=== PATIENT | male | born 1930 | race Caucasian/White ===

== ENCOUNTER 2020-08-20 06:51 | Inpatient (IN) | payer OTHER ==
[~2020-08-20] VITALS: Ht 180.3 cm; Wt 73.9 kg
[2020-08-20 06:58] VITALS: BP 147/96
[2020-08-20 07:40] LABS: ABSOLUTE NEUTROPHILS 6.4 thou/uL (1.4-8.2); BASOPHILS 0.2 % (0.0-2.0); EOSINOPHILS 0.5 % (0.0-3.0); HEMATOCRIT 48.1 % (42.0-52.0); LYMPHOCYTES 7.3 % (24.0-44.0); MCH 33.8 pg (26.0-34.0); MCHC 33.3 g/dL (28.0-37.0); MCV 101.7 fL (80.0-100.0); MONOCYTES 5.9 % (1.0-8.0); POLYS 86.1 % (36.0-66.0); RBC 4.73 mil/uL (4.50-6.00); WBC 7.4 thou/uL (4.0-11.0)
[2020-08-20 07:43] LABS: ANION GAP 8 mmol/L (7-16); BUN 43 mg/dL (7-18); CALCIUM 9.8 mg/dL (8.5-10.1); CHLORIDE 101 mmol/L (98-107); CO2 30 mmol/L (21-32); CREATININE 1.7 mg/dL (0.7-1.3); GLUCOSE 139 mg/dL (74-106); POTASSIUM 4.8 mmol/L (3.5-5.1); SODIUM 139 mmol/L (136-145)
[2020-08-20 07:53] LABS: ALBUMIN 4.3 g/dL (3.4-5.0); MAGNESIUM 2.7 mg/dL (1.8-2.4); SGOT 31 U/L (15-37); SGPT 23 U/L (30-65); TOTAL BILIRUBIN 0.8 mg/dL (0.2-1.0); TOTAL PROTEIN 8.5 g/dL (6.4-8.2); TROPONIN-I <0.06 ng/mL (<0.06)
[2020-08-20 07:54] LABS: INR 2.07; PROTIME 21.8 Seconds (10.5-12.1)
[2020-08-20] MEDS ORDERED: ALLOPURINOL 10100 M3 PO (08:39)
[2020-08-20] MEDS ORDERED: ARICEPT10 M1 PO (08:41)
[2020-08-20] MEDS ORDERED: COZAAR 25 MG TA25 M1 PO (08:43)
[2020-08-20] MEDS ORDERED: [UNRECOGNIZED DRUG - OTHER] PO (08:44)
[2020-08-20] MEDS ORDERED: TORSEMIDE20 MG PO (08:44)
[2020-08-20] MEDS ORDERED: VITAMIN D-40010 MCG PO (08:44)
[2020-08-20] MEDS ORDERED: ZOCOR20 MG PO (08:45)
[2020-08-20] MEDS ORDERED: SPIRONOLACTONE25 M1 PO (08:45)
[2020-08-20] MEDS ORDERED: PREVACID30 MG PO (08:46)
[2020-08-20] MEDS ORDERED: MIRTAZAPINE45 MG PO (08:46)
[2020-08-20] MEDS ORDERED: WARFARIN SODIUM1 GM (08:47)
[2020-08-20 09:57] LABS: PLATELET COUNT 177 thou/uL (150-400)
--- NOTE | 2020-08-20 10:42 | NUR ---
VERBAL ORDERS PER ED PROVIDER TO KEEP CARDIZEM DRIP AT 5MG/HR AT THIS TIME D/T SOFT BLOOD PRESSURE
--- NOTE | 2020-08-20 11:02 | NUR ---
PT SON AND SPOUSE HELPING PT USE THE URINAL AT THIS TIME, ENCOURAGED TO USE CALL LIGHT IF THEY NEED ASSISTANCE
--- NOTE | 2020-08-20 13:28 | NUR ---
REPORT GIVEN TO GAB MENA AT THIS TIME. PT MOVED TO SOUTH SIDE OF THE ED TO WAIT FOR BED ASSIGNMENT UPSTAIRS
[2020-08-20 16:22] VITALS: BP 113/77
[2020-08-20 16:50] VITALS: BP 159/104
--- NOTE | 2020-08-20 18:00 | NUR ---
PT ARRIVED AT 1655 FROM ER VIA CART. PT AMBULATED FROM CART TO BED UNASSISTED AND STEADY ON FEET. PT STATES HE DOES NOT USE ANY ASSISTIVE DEVICES TO AMBULATE AT HOME AND HAS NOT HAD ANY FALLS. PT HOOKED UP TO TELEMETRY AND HR 134 AFIB. TELE STRIP PRINTED AND PLACED ON CHART. PT WAS ABLE TO SIGN ALL OF HIS OWN CONSENTS. PT C/O SORE PAIN IN THE MIDDLE OF HIS CHEST AND STATES IT GETS WORSE WITH DEEP BREATHS. PT STATES HE GENERALLY DOES NOT HAVE ANY PAIN AT ALL. PT'S AND PT'S ADULT SON AT BEDSIDE. PT IS CONVERSING AND HAS A GOOD SENSE OF HUMOR. PT STATES HE AND HIS RESIDE IN [facility] AND THEY ARE IN THE AREA FOR A GRANDDAUGHTER'S WEDDING THIS PAST WEEKEND. PT STATES HIS PRIMARY DOCTOR IS DR. TAMELA OTERO FROM [facility] IN [place]. PT'S CLARENCE- [phone] PT'S SON HAVEN- [phone] PT STATES SON HAVEN HAS MEDICAL DPOA IF HE EVER IS INCOMPETENT OF MAKING HIS OWN MEDICAL DECISIONS.
--- NOTE | 2020-08-20 18:13 | NUR ---
PT'S PRIMARY CARE DOCTOR- DR. TAMELA OTERO - [facility]- [phone] PT'S HYDRAULIC TESTER- DR. NIVIA HARVEY- [facility]-
[2020-08-20 20:03] VITALS: BP 110/57
[2020-08-20 21:37] VITALS: BP 135/69
--- NOTE | 2020-08-21 08:22 | EKG ---
[address] [place] [address] ELECTROCARDIOGRAM REPORT Name: KERMIT QUINTANA Room #: 208-P ADM IN M.R.#: [id number] Admission: 08/20/20 Attend Phys: Dave Retana MD Discharge: Date of : [birth year] Report #: [id number] [facility] ED Test Date: 2020-08-20 Test Time: 06:57:11 Pat Name: KERMIT QUINTANA Department: Room: 208 Gender: M Claims Adjuster Supervisor: unknown : [phone] Requested By: Kermit Jc Order Number: [id number] MD: Uli Hopper Measurements Intervals [place] Rate: 116 P: AK: QRS: -72 QRSD: 115 T: 85 QT: 324 QTc: 451 Interpretive Statements Atrial fibrillation Paired ventricular premature complexes Nonspecific IVCD with LAD Inferior infarct, old Anterior infarct, old Compared to ECG 10/16/2008 18:02:34 Ventricular premature complex(es) now present Intraventricular conduction delay now present Sinus rhythm no longer present First degree AV block no longer present Left-axis deviation no longer present Myocardial infarct finding still present Electronically Signed On 08-21-2020 7:00:33 CDT by Uli Hopper [email or web address] <ELECTRONICALLY SIGNED> By: Uli Hopper MD, [facility] 08/21/20 0700 Uli Hopper MD, [facility] /EPI
--- NOTE | 2020-08-21 10:11 | 2DMMODE ---
[facility] [address] [place] [address] 2 D/M-MODE ECHOCARDIOGRAM Name: KERMIT QUINTANA Room #: 208-P ADM IN M.R.#: [id number] Admission: 08/20/20 Attend Phys: Dave Retana MD Discharge: Date of : [birth year] Report #: [id number] THIS REPORT FOR: cc: FAM - Family physician unknown FAM - Family physician unknown Javon Tucker MD ~ APPROVED REPORT Study performed: 08/21/2020 09:31:24 EXAM: Comprehensive 2D, Doppler, and color-flow Echocardiogram Patient Location: Bedside Room #: 208 Status: routine BSA: 1.91 HR: 85 bpm BP: 135/69 mmHg Rhythm: Atrial Fibrillation Other Information Study Quality: Adequate Indications Atrial Fibrillation Chest Pain ? Amyloidosis, Elevated BNP. 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 2D Dimensions RVDd: 39.00 mm IVSd: 13.00 (7-11mm) LVOT Diam: 21.00 (18-24mm) LVDd: 46.00 mm PWd: 13.00 (7-11mm) LVDs: 35.00 (25-40mm) Left Atrium: 46.00 (27-40mm) Aortic Root: 40.00 mm Volumes Left Atrial Volume (Systole) Single Plane 4CH: 112.66 mL Single Plane 2CH: 88.16 mL Aortic Valve AoV Peak Ugo.: 1.20 m/s AO Peak Gr.: 5.80 mmHg LVOT Max P.12 mmHg [facility] [address] [place] [address] 2 D/M-MODE ECHOCARDIOGRAM Name: KERMIT QUINTANA Room #: 208-P ADM IN .R.#: [id number] Admission: 08/20/20 Attend Phys: Dave Retana MD Discharge: Date of : [birth year] Report #: [id number] LVOT Max V: 0.73 m/s WILLARD Vmax: 2.01 cm2 Mitral Valve MV Decel. Time: 116.35 ms MV E Max Ugo.: 0.83 m/s Pulmonary Valve PV Peak Ugo.: 0.73 m/s PV Peak Gr.: 2.14 mmHg Tricuspid Valve TR Peak Ugo.: 3.39 m/s RAP Estimate: 15.00 mmHg TR Peak Gr.: 46.08 mmHg PA Pressure: 61.00 mmHg Left Ventricle The left ventricle is normal size. Moderate concentric left ventricular hypertrophy. Left ventricular systolic function is low normal. LVEF is 50%. This study is not technically sufficient to allow evaluation of the LV diastolic function due to atrial fibrillation. Right Ventricle The right ventricle is normal size. Right ventricle is mildly hypokinetic. Atria Severe biatrial enlargement. Aortic Valve The aortic valve is normal in structure; mildly thickened and calcified. No aortic regurgitation is present. There is no aortic valvular stenosis. Mitral Valve The mitral valve is normal in structure. Mild mitral regurgitation. No evidence of mitral valve stenosis. Tricuspid Valve The tricuspid valve is normal in structure. Moderate tricuspid regurgitation. Estimated PAP is 60mmHg. Pulmonic Valve The pulmonary valve is normal in structure. Mild pulmonic regurgitation. [facility] [address] [place] [address] 2 D/M-MODE ECHOCARDIOGRAM Name: KERMIT QUINTANA Olya Room #: 208-P ADM IN M.R.#: [id number] Admission: 08/20/20 Attend Phys: Dave Retana MD Discharge: Date of : [birth year] Report #: [id number] Great Vessels The sinuses are mildly dilated at 4.0cm. Ascending aorta is not well visualized. IVC is dilated and collapses <50% with inspiration. Pericardium There is no pericardial effusion. <Conclusion> The left ventricle is normal size. Moderate concentric left ventricular hypertrophy. LVEF is 50%. The right ventricle is normal size. Severe biatrial enlargement. The aortic valve is normal in structure; mildly thickened and calcified. No aortic regurgitation is present. The mitral valve is normal in structure. Mild mitral regurgitation. The tricuspid valve is normal in structure. Moderate tricuspid regurgitation. Estimated PAP is 60mmHg. The pulmonary valve is normal in structure. Mild pulmonic regurgitation. The sinuses are mildly dilated at 4.0cm. There is no pericardial effusion. <ELECTRONICALLY SIGNED> By: Javon Tucker MD 08/21/20 1011 [id number] 101 Javon Tucker MD /INF
[2020-08-21 14:27] LABS: URINE BILIRUBIN NEGATIVE (Negative); URINE BLOOD NEGATIVE (Negative); URINE CLARITY CLEAR; URINE COLOR YELLOW; URINE GLUCOSE-RANDOM* NEGATIVE (Negative); URINE KETONES NEGATIVE (Negative); URINE LEUKOCYTES-REFLEX NEGATIVE (Negative); URINE NITRITE-REFLEX NEGATIVE (Negative); URINE PROTEIN (DIPSTICK) NEGATIVE (Negative); URINE UROBILINOGEN 0.2 E.U./dl (0.2-1.0)
--- NOTE | 2020-08-21 17:17 | NUR ---
ASSUMED CARE SHIFT CHANGE.VSS. DENIES PAIN. FAMILY AT BEDSIDE THROUGOUT DAY. PT UP WALKING AMANDA WELL. STRESS TEST/ECHO THIS SHIFT. SEE RESULTS. PLAN FOR POSSIBLE DC TOMORROW. CONT POC, DENYING NEEDS. WILL PASS ON REPORT TO NOC RN.
[2020-08-21 20:10] VITALS: BP 110/73
[2020-08-22 04:42] VITALS: BP 111/77
--- NOTE | 2020-08-22 07:38 | NUR ---
PATIENTS CARES WERE ASSUMED AT SHIFT CHANGE. PATIENT WAS ASSESSED AND MEDS WERE PASSED. PATIENT HAD A MUCH BETTER NIGHT THIS SHIFT. NOT RESTLESS OR AGITATED. FAMILY WAS AT THE BEDSIDE LATE LAST NIGHT AND RETURNED EARLY THIS MORNING. FAMILY IS HAPPY TO GO HOME TODAY. ROUNDS WERE MADE, BED ALARMS ON AND THE BED IS IN A LOW AND LOCKED POSITION.
[2020-08-22 07:48] VITALS: BP 116/86
[2020-08-22] MEDS ORDERED: METOPROLOL SUCC50 MG PO (08:39)
[2020-08-22 11:16] VITALS: BP 122/73
[2020-08-22 11:17] LABS: ABSOLUTE NEUTROPHILS 3.5 thou/uL (1.4-8.2); WBC 5.1 thou/uL (4.0-11.0)
[2020-08-22 11:21] LABS: ABSOLUTE RETIC COUNT 0.0603 10^6/uL; BASOPHILS 0.7 % (0.0-2.0); EOSINOPHILS 2.7 % (0.0-3.0); HEMATOCRIT 40.5 % (42.0-52.0); LYMPHOCYTES 17.8 % (24.0-44.0); MCH 33.9 pg (26.0-34.0); MCHC 33.4 g/dL (28.0-37.0); MCV 101.5 fL (80.0-100.0); MONOCYTES 10.5 % (1.0-8.0); OBSERVED RETIC COUNT 1.51 % (0.6-2.6); PLATELET COUNT 160 thou/uL (150-400); POLYS 68.3 % (36.0-66.0); RBC 3.99 mil/uL (4.50-6.00); RDW 15.4 % (10.5-14.5)
[2020-08-22 11:23] LABS: HEMOGLOBIN 13.5 gm/dL (14.0-18.0)
[2020-08-22 11:39] LABS: CREATININE 1.5 mg/dL (0.7-1.3)
[2020-08-22 11:54] LABS: ALBUMIN 3.2 g/dL (3.4-5.0); CALCIUM 8.9 mg/dL (8.5-10.1); DIRECT BILIRUBIN 0.4 mg/dL (<0.1-0.2); MAGNESIUM 2.5 mg/dL (1.8-2.4); TOTAL BILIRUBIN 1.2 mg/dL (0.2-1.0); TOTAL PROTEIN 6.3 g/dL (6.4-8.2)
--- NOTE | 2020-08-22 11:57 | NUR ---
ORDERS RECEIVED FOR PT EVAL AND TREAT. Pt IS IN TOWN FROM [place] FOR A WEDDING. LIVES W/ HIS . NO GAIT AID AT BASELINE. DENIED RECENT FALLS. PER SON, Pt WAS JUST UP TO THE BATHROOM W/O ISSUES ON HIS OWN. HAS BEEN WALKING IN THE HALLWAYS W/ SON. PER Pt, NO MOBILITY ISSUES AT THIS TIME. DECLINED NEED FOR ACUTE PT. ACUTE PT TO SIGN OFF.
[2020-08-22 12:22] VITALS: BP 122/73
--- NOTE | 2020-08-22 12:33 | NUR ---
ASSESSMENT CHARTED. PT ALERT AND ORIENTED WITH FORGETFULNESS. VSS. DENIED HAVING PAIN OR DISCOMFORT. SEEN BY DR. HENDERSON. ORDERS GIVEN TO DISCHARGE PT TO HOME. DISCHARGE INSTRUCTIONS GIVEN TO PT AND THE SON. THEY BOTH VERBERLISED UNDERSTANDING.
--- NOTE | 2020-08-22 16:16 | NUR ---
Chart reviewed and case discussed with the care team. Pt in town from [place] with his . Son lives locally and is dpoa if needed. Pt up ad ilene in his room and walking in the hallway with family. Dc'd to outpt f/u. Has pcp and heart dr in [place] and ins in place for followup care needs. No cm interventions indicated. Case not opened.
== END 2020-08-22 13:31 | disposition home or self-care (01) | DRG 309 ==
LOC: ER 06:51 → 2N 09:01 → EROBS 09:01 → 2N 17:02
PROVIDERS: Emergency Medicine; Internal Medicine; ADMIT Internal Medicine; ATTEND Internal Medicine
DX: I48.21 Permanent atrial fibrillation (principal); I13.0 Hypertensive heart and chronic kidney disease with heart failure and stage 1 through stage 4 chronic kidney disease, or unspecified chronic kidney disease; I50.32 Chronic diastolic (congestive) heart failure; R07.9 Chest pain, unspecified; I42.8 Other cardiomyopathies; F03.90 Unspecified dementia, unspecified severity, without behavioral disturbance, psychotic disturbance, mood disturbance, and anxiety; I25.5 Ischemic cardiomyopathy; R53.81 Other malaise; Z66 Do not resuscitate; D64.9 Anemia, unspecified; N18.30 Chronic kidney disease, stage 3 unspecified; Z98.49 Cataract extraction status, unspecified eye; Z90.49 Acquired absence of other specified parts of digestive tract; Z85.528 Personal history of other malignant neoplasm of kidney; Z79.01 Long term (current) use of anticoagulants; Z90.5 Acquired absence of kidney; Z79.82 Long term (current) use of aspirin; Z79.899 Other long term (current) drug therapy; Z87.891 Personal history of nicotine dependence
CPT/HCPCS: 10081